=== PATIENT | female | born 1975 | race Caucasian/White ===

== ENCOUNTER 2020-04-07 02:49 | Emergency (ER) | payer MEDICARE, MEDICAID, SELFPAY ==
[2020-04-07 03:19] VITALS: BP 154/100; PULSE 90; RESP 18; TEMP 36.7; O2SAT 96; BMI 32.5
[2020-04-07 04:00] VITALS: BP 135/91; PULSE 92; RESP 16; O2SAT 100
--- NOTE | 2020-04-07 04:33 | XR_ITS ---
WS: [id number] EXAM: AP CHEST: PORTABLE UPRIGHT DATE OF EXAM: 04/07/2020, 0444 hours COMPARISON: NONE HISTORY: Patient is 45 years old with cough with shortness of breath. FINDINGS: The cardiac silhouette is normal in size. The mediastinal contours are normal. The pulmonary vas cularity is normal. Left lung is clear. There is a slightly elliptical lucency with a slight rim adj acent to the right heart border which appears to be a possible parenchymal cyst within the lung. PA a nd lateral imaging recommended. There is no effusion or pneumothorax. No acute bony abnormality is seen. XR/XR chest 1V portable 13003 IMPRESSION: Suspicion for possible parenchymal cyst formation within the right medial lower chest abutting the heart. PA and lateral imaging recommended. No pulmonary inf iltrate.
[2020-04-07] MEDS: diphenhydrAMINE 50 mg Capsule PO (04:41)
[2020-04-07] MEDS: dexamethasone 4 mg Tablet 10 MG PO (04:41)
[2020-04-07 05:44] LABS: SARS Covid-2 Antigen Negative (Negative)
[2020-04-07 05:51] LABS: Rapid Strep A Test Negative (Negative)
[2020-04-07 06:31] VITALS: BP 128/86; PULSE 88; O2SAT 96
--- NOTE | 2020-04-07 19:19 | ED_ITS ---
HPI - Allergic Reaction General: Chief complaint: Allergic Reaction Stated complaint: rash on stomach and arms Time Seen by Provider: 04/07/20 03:42 History of Present Illness: HPI narrative: 45-year-old female that complains of a rash that started 4 to 5 days ago over her upper abdomen. It has spread over the past few days to her chest, back, and upper extremities. It itches. It is dry. She complains of low-grade fevers, sore throat, and cough. She de nies significant shortness of breath. She denies nausea or vomiting. Associated symptoms: Deny abdominal pain, difficulty breathing, dizziness, nausea or vomiting Treatment prior to arrival: other (Atarax) Review of Systems Const: Reports: fever(s) and chills Eyes: Denies: change in vision or blurry vision ENMT: Denies: swelling of lips/tongue or bleeding gums Card: Denies: chest pain, palpitations, irregular heart rhythm or swelling of feet/ankles Resp: Reports: non-productive cough; Denies: dyspnea, productive cough or wheezing GI: Denies: abdominal pain, nausea or vomiting : Denies: dysuria, urinary frequency, urinary urgency or hematuria Musc: Denies: neck pain, back pain or joint warmth Skin/Breast: Denies: rash, pruritus or erythema Neuro: Denies: headache(s), dizziness, vertigo, confusion or seizure-like activity Psych: Denies: anxiety, visual hallucinations or auditory hallucinations Physical Exam Const: GENERAL APPEARANCE: well developed ORIENTATION/CONSCIOUSNESS: Yes oriented to person, Yes oriented to place and Yes oriented to time HENMT: COMMON NORMALS: normocephalic, external ears normal and Normal external nose present HEAD & SCALP: normocephalic FACE & SINUS: normal facial exam NOSE: Normal external nose present and No nasal discharge present EXTERNAL EAR: Yes external ears normal MOUTH: tongue normal THROAT: posterior oropharynx normal; no peritonsillar mass Eye: COMMON NORMALS: Equal, round and reactive pupils present, EOMs intact bilaterally and conjunctivae normal EYELID: eyelids normal CONJUNCTIVA: Yes conjunctivae normal PUPIL: Yes Equal, round and reactive pupils present Neck/C-Spine: GENERAL: No tracheal deviation Chest: COMMONS NORMALS: normal inspection of the chest CHEST: No tenderness Resp: COMMON NORMALS: clear to auscultation bilaterally EFFORT & INSPECTION: No tachypneic, No respiratory distress, No retractions, No uses accessory muscles and No tracheal deviation AUSCULTATION: clear to auscultation bilaterally, no rhonchi, no wheezes and lung sounds not diminished Cardio: COMMON NORMALS: regular rate and regular rhythm RATE: regular rate RHYTHM: regular rhythm HEART SOUNDS: no murmurs PERIPHERAL PULSES: radial pulses present GI: INSPECTION: No abdominal distension AUSCULTATION: No Hyperactive bowel sounds present and No Hypoactive bowel sounds present PALPATION: No Guarding due to palpation present (GI) and No Rigid due to palpation Neuro: SENSORIUM/ORIENTATION: Yes oriented to person, Yes oriented to place and Yes oriented to time Psych: COMMON NORMALS: mental status grossly normal Skin: GENERAL SKIN EXAM: other (Dry, scaly papules to the upper abdomen, chest, less so on the back and upper extremities. Indicative of a contact type dermatitis.) Course Vital Signs: Vital signs: Vital Signs Temperature 98.0 F 04/07/20 03:19 Pulse Rate 88 04/07/20 06:31 Respiratory Rate 16 04/07/20 04:00 Blood Pressure 128/86 04/07/20 06:31 Pulse Oximetry 96 04/07/20 06:31 MDM - Allergic Reaction MDM Narrative: Medical decision making narrative: Patient is COVID negative and strep negative here. Rash does look like a contact type dermatitis. She will be treated with steroids. She has had a cough, and some fevers. We will cover her for bronchitis. Lab Data: Labs: Lab Results 04/07/20 04/07/20 Range/Units 04:57 04:57 SARS-CoV-2 Ag (Rap id) Negative (Negative) Group A Strep Rapi d Negative (Negative) Discharge Plan Discharge Patient Disposition: Home Clinical Impression: Bronchitis Contact dermatitis Qualifiers: Contact dermatitis type: allergic Condition: Stable Prescriptions: New prednisone 10 mg tablet See Rx Instructions .ROUTE .COMPLEX Qty: 21 RF: 0 doxycycline hyclate 100 mg capsule 100 mg PO BID 7 Days Qty: 14 RF: 0 Benadryl 25 mg capsule 25 mg PO Q6H PRN (Reason: itching) Qty: 30 RF: 0 Discharge Orders: Discharge Order (Routine); Ordered 04/07/20 Ordered By: Barrington Delarosa Referrals: Patel Escobar [Primary Care Provider] - 4-7 days Discharge Diet: Advance as tolerated Discharge Activity: Increase activity as tolerated Patient Instructions: Allergic Reaction, Acute Bronchitis (ED) Activity Restrictions/Additional Instructions: Return for continued fever despite 2-3 doses of antibiotics, worsening rash or itch despite treatment, worsening shortness of breath, other concerning symptoms. 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
== END 2020-04-07 06:31 | disposition home or self-care (01) ==
PROVIDERS: Emergency Provider Emergency Medicine; PCP Family Medicine
DX: L23.9 Allergic contact dermatitis, unspecified cause (principal); J40 Bronchitis, not specified as acute or chronic
CPT/HCPCS: 12345; 71045; 87081; 87426; 87880; 99282; 99283; J8540; Q0163